=== PATIENT | male | born 1955 | race Caucasian/White ===

== ENCOUNTER → 2017-11-25 | Outpatient (CLI) | payer OTHER ==
--- NOTE | 2017-11-25 10:30 | CT ---
EXAMINATION TYPE: CT chest w con DATE OF EXAM: 11/25/2017 COMPARISON: 10/19/2017 HISTORY: Multiple lung nodules, recent pneumonia [address] DLP: 638.3 mGycm, Automated exposure control for dose reduction was used. CONTRAST: Performed injected with 100 mL of Omnipaque 300. TECHNIQUE: Axial images were obtained at 5 mm thick sections. Reconstructed images are reviewed on [employer] computer in the coronal plane. FINDINGS: Portion of the thyroid visualized is normal. Subglottic airway appears normal. There are multiple bilateral nodules within the mid periphery of the lung torres bilaterally in both upper and lower lung torres. Larger nodules measure up to 0.7 cm and include posterior to the aortic arch, series 4 image 16, right upper lobe, series 4 image 21 along the pleural margin on the posterio r lateral right lung base. Series 4 image 45. There are additional smaller nodules documented on the images. Nodules are present on the 10/19/2017 comparison. Previous left pleural effusion is resolved. No enlarged mediastinal or hilar adenopathy is evident. There are several small subcentimeter lymph nodes present within the mediastinum and hilar regions. The ascending aorta diameter at the level of the main pulmonary artery is 4.1 cm. The main pulmonary artery diameter at the bifurcation is 3.[address] sections are obtained through the upper abdomen. Some mild fatty infiltration liver is pre sent. IMPRESSIONS: 1. Multiple bilateral pulmonary nodules present on the comparison of October 2017. Findings are stab le. Monitoring is recommended. Neoplasm is not excluded.
== END | disposition home or self-care (01) ==
LOC: RADCTMAIN 09:26
PROVIDERS: ATTEND Internal Medicine Critical Care Medicine
DX: R91.8 Other nonspecific abnormal finding of lung field (principal)
CPT/HCPCS: 71260; Q9967

== ENCOUNTER 2017-11-27 10:34 | Day surgery (SDC) | payer OTHER ==
[2017-11-25 14:01] VITALS: BMI 37.3
[2017-11-27 12:21] VITALS: RESP 20; TEMP 98.2
[2017-11-27 12:28] LABS: Glucose,Whole Blood 118 mg/dL (75-99)
[2017-11-27] MEDS: LACTATED RINGERS 1,000 ML IV SCH ×2 (12:30→12:31)
[2017-11-27] MEDS ORDERED: PROPOFOL 10 MG/ML 20 ML VIAL IV ONE (12:32)
--- NOTE | 2017-11-27 12:52 | P.PCN ---
Date of Procedure: 11/27/17 Procedure(s) Performed: BRIEF HISTORY: Patient is a 62-year-old pleasant white male, scheduled for an elective colonoscopy as a part of surveillance of prior history of colon cancer diagnosed in October 2014 for which she underwent sigmoid resection. PROCEDURE PERFORMED: Colonoscopy With biopsy. 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 IV sedation per Anesthesia. PROCEDURE: After informed consent was obtained, the patient, was brought into the endoscopy unit. IV sedation was administered by Anesthesia under continuous monitoring. Digital rectal examination was normal. Initially the Olympus CF- 160 flexible video colonoscope was then inserted in the rectum, gradually advanced into the cecum without any difficulty. Careful examination was performed as the scope was gradually being withdrawn. Ileocecal valve and the appendiceal orifice were visualized and appeared normal. Prep was excellent. Mucosa of the cecum, ascending colon, transverse colon,appeared normal. In the descending colon there was a 5 mL polyp that was removed by biopsy. The rest of the descending colon, and rectum appeared normal. There was a 5 mm polyp noted in the mid rectum there was also removed by biopsy. Surgical anastomosis was located at 20 cm from the anal was that appeared normal. Retroflexion was performed in the rectum and no lesions were seen. The patient tolerated the procedure well. IMPRESSION: 5 mm descending colon polyp status post removal by biopsy 5 mm rectal polyp status post removal by biopsy Scattered diverticulosis RECOMMENDATIONS: Findings of this examination were discussed with the patient as well as his family. he was advised to follow with the biopsy results. He can have a repeat surveillance colonoscopy in 3 years.
[2017-11-27 13:57] VITALS: BP 145/88; PULSE 93
--- NOTE | 2017-12-02 13:53 | CDI ---
Date: 12/02/17 CDS/[employer] Name: [place] Phone: If you have question, contact Chhaya Sandoval, [employer] at M-F 8:30 am to 6pm. Patient Name: Frankie Good Admit Date: 11/27/17 Discharge Date: 11/27/17 ATTENTION: The Clinical Documentation Specialists (CDI) and [facility] Coding Staff appreciate your assistance in clarifying documentation. Please respond to the clarification below the line at the bottom and electronically sign. The CDI & [facility] Coding staff will review the response and follow-up if needed. Please note: Queries are made part of the Legal Health Record. If you have any questions, please contact the author of this message via ITS or call the [employer]. Dr [place], Please provide clarification as to the method that the rectal and descending polyps were removed. Please clarify if it was hot or cold biopsy Thank you for your assistance. Polyps were removed by cold biopsy STEFFANY
== END 2017-11-27 14:27 | disposition home or self-care (01) ==
LOC: ORWHC2ENDO 10:34
PROVIDERS: ATTEND Internal Medicine Gastroenterology
DX: Z12.11 Encounter for screening for malignant neoplasm of colon (principal); D12.4 Benign neoplasm of descending colon; D12.8 Benign neoplasm of rectum; Z90.49 Acquired absence of other specified parts of digestive tract; Z85.038 Personal history of other malignant neoplasm of large intestine; K57.30 Diverticulosis of large intestine without perforation or abscess without bleeding; I10 Essential (primary) hypertension; Z79.899 Other long term (current) drug therapy; Z88.2 Allergy status to sulfonamides; Z88.1 Allergy status to other antibiotic agents; Z91.041 Radiographic dye allergy status
CPT/HCPCS: 88305; 45380; J2704

== ENCOUNTER → 2018-06-11 | Outpatient (CLI) | payer OTHER ==
--- NOTE | 2018-06-11 12:32 | US ---
EXAMINATION TYPE: US kidneys/renal and bladder DATE OF EXAM: 06/11/2018 COMPARISON: NONE CLINICAL HISTORY: N28.9 Right kidney pain. History of colon CA EXAM MEASUREMENTS: Right Kidney: 9.8 x 5.8 x 6.0 cm Left Kidney: 11.4 x 6.5 x 6.0 cm Right Kidney: Measuring smaller than the left . No hydronephrosis. No cystic or solid mass visualized Left Kidney: No hydronephrosis. Echogenic foci visualized measuring 0.4 cm Bladder: wnl Bilateral Jets seen: Yes IMPRESSION: 1. Slight diminished size of right kidney compared to left. 2. Nonobstructing superior pole left renal stone
== END | disposition home or self-care (01) ==
LOC: RADUSWWP 07:36
PROVIDERS: ATTEND Family Medicine
DX: N20.0 Calculus of kidney (principal)
CPT/HCPCS: 76770

== ENCOUNTER → 2018-07-05 | Outpatient (CLI) | payer OTHER ==
[2018-07-05 11:34] LABS: Blood Urea Nitrogen 13 mg/dL (9-20)
--- NOTE | 2018-07-05 14:35 | CT ---
EXAMINATION TYPE: CT chest w con DATE OF EXAM: 07/05/2018 COMPARISON: 11/25/2017 and 06/16/2017 HISTORY: 63-year-old male Abnormal prior scan, spots in lungs TECHNIQUE: Contiguous axial scanning of the chest after the administration of 100 mL of Isovue 300. Coronal/sagittal reconstructions performed. CT DLP: 828.3mGycm. Automatic exposure control utilized for a dose reduction. FINDINGS: Heart is normal size without pericardial effusion. Ascending aorta ectatic and 3.7 cm. Upper descending thoracic aorta is ectatic at 3.2 cm. There is luisa vine configuration to the aortic arch. Very direct takeoff of the left vertebral artery also from the aortic arch. Calcified left hilar lymph nodes are noted. No thoracic lymphadenopathy by CT size criteria. Numerous bilateral pulmonary nodules are redemonstrated, measuring up to 8 mm and 7 mm in the right l ower lobe. Nodules are largely unchanged as compared to 06/16/2017. No consolidation or pleural effusio n. Low attenuation of the hepatic parenchyma, suspected fatty infiltration. At the tiny 5 mm dependent g allstone noted. Bones: No osseous destructive process. IMPRESSION: Numerous bilateral pulmonary nodules measuring up to 8 mm are largely unchanged from 06/16/2017. Given calcified lymph nodes in the left hilum, these may relate to prior granulomatous disease. One-year st ability suggests a benign etiology. Additional one-year follow-up recommended.
== END | disposition home or self-care (01) ==
LOC: RADCTMAIN 10:55
PROVIDERS: ATTEND Internal Medicine Critical Care Medicine
DX: R91.8 Other nonspecific abnormal finding of lung field (principal)
CPT/HCPCS: 82565; 84520; 71260; 36415; Q9967

== ENCOUNTER → 2019-05-31 | Outpatient (CLI) | payer OTHER ==
--- NOTE | 2019-05-31 11:31 | US ---
EXAMINATION TYPE: US soft tissue neck DATE OF EXAM: 05/31/2019 COMPARISON: NONE CLINICAL HISTORY: 64-year-old male R59.0 Localized enlarged lymph nodes. Patient states the right marycruz e of his neck felt swollen. Is no longer feeling that way at time of exam TECHNIQUE: Multiple sonographic images along the right side of the neck at the site of patient direct ed swelling. FINDINGS: No significant abnormality visualized on current exam. Normal appearing probable lymph node visualize d measuring 0.9 x 0.4 x 0.5 cm IMPRESSION: Targeted scanning along the right side of the neck at the site of patient directed swelling. Patient reports that swelling has improved clinically. A benign-appearing, nonenlarged 5 mm short axis lymph node is seen in this location.
--- NOTE | 2019-05-31 20:20 | EST ---
EXERCISE STRESS AGE: 64 SEX: Male WT: 258 PROTOCOL: Kaleb STAGE: 3 DURATION OF EXERCISE: 6:30 HEART RATE REST: 77 BLOOD PRESSURE REST: 132/68 MAXIMUM HEART RATE ACHIEVED: 136 MAXIMUM BLOOD PRESSURE: 169/65 85% MPHR: 134 100% MPHR: 158 METS: 7.9 INDICATIONS: Syncope. CLINICAL INFORMATION: Baseline EKG revealed normal sinus rhythm with nonspecific T-wave flattening. The patient walked on standard Kaleb protocol for 6-1/2 minutes, achieved a maximal heart rate of 136 beats per minute, which is 86% of predicted maximal. He developed fatigue and shortness of breath but did not have any angina or arrhythmia. EKG revealed inferolateral ST-segment depression of more than 1 mm suggestive of ischemia without subjective symptoms of angina. There was no arrhythmia. Possibility of this being a false-positive should be considered. The patient does have underlying hypertension. By EKG criteria, this is considered as an inconclusive stress test with limited exercise capacity. Resting EKG was abnormal to begin with and there was inferolateral ST-segment depression without anginal symptoms. If ischemia is strongly suspected, he should have a stress Cardiolite scan or a stress echocardiogram. MMODL / IJN: [id number] /
== END | disposition home or self-care (01) ==
LOC: RADUSWWP 07:15
PROVIDERS: ATTEND Family Medicine
DX: R59.0 Localized enlarged lymph nodes (principal); I10 Essential (primary) hypertension; E11.9 Type 2 diabetes mellitus without complications; R55 Syncope and collapse
CPT/HCPCS: 76536; 93017

== ENCOUNTER → 2019-08-08 | Outpatient (CLI) | payer OTHER ==
[2019-08-08 09:30] LABS: African American GFR (CKD) >90 (>60 ml/min/1.73 sqM); Blood Urea Nitrogen 15 mg/dL (9-20)
--- NOTE | 2019-08-08 13:22 | CT ---
EXAMINATION TYPE: CT chest w con DATE OF EXAM: 08/08/2019 COMPARISON: 07/05/2018 and 06/16/2017 HISTORY: 64-year-old male lung nodule TECHNIQUE: Contiguous axial scanning of the chest after the administration of 100 mL of Isovue 300. Coronal/sagittal reconstructions performed. CT DLP: 797mGycm. Automatic exposure control utilized for a dose reduction. FINDINGS: Heart upper limits of normal in size without pericardial effusion. Scattered mild coronary vessel benito cifications are present. Ectatic ascending aorta 3.8 cm an ectatic upper descending thoracic aorta 3.2 cm. Mild apical scarrin g plaque in the arch. Bovine configuration and additional variant direct takeoff of the left vertebra l artery directly from the aortic arch. Calcified left hilar lymph nodes. No thoracic lymphadenopathy by CT size criteria. Some strandy dependent atelectasis in the lungs. Numerous scattered bilateral pulmonary nodules measu ring up to 8 mm are largely unchanged from 06/16/2017. A few pulmonary nodules measuring up to 5 mm in the left upper lobe were not clearly seen in 2017 but were seen back on 07/05/2018 suggesting a benign etiology. No new pulmonary nodules from that time. A n additional annual follow-up can be performed. No consolidation or pleural effusion. Visualized upper abdomen suggests hepatic steatosis. Small 4 mm gallstone. Bones: Mild endplate spondylosis mid to lower thoracic spine. IMPRESSION: 1. Numerous bilateral pulmonary nodules measuring up to 8 mm, largely unchanged from 2017. A few with in the left upper lobe were not clearly seen back in 2017 but are unchanged from 07/05/2018 suggesting a benign etiology. No new pulmonary nodules seen. Consider continued annual surveillance. 2. Hepatic steatosis and 4 mm gallstone.
== END | disposition home or self-care (01) ==
LOC: RADCTMAIN 08:40
PROVIDERS: ATTEND Internal Medicine
DX: R91.8 Other nonspecific abnormal finding of lung field (principal); K76.0 Fatty (change of) liver, not elsewhere classified; K80.20 Calculus of gallbladder without cholecystitis without obstruction; Z88.1 Allergy status to other antibiotic agents; Z88.2 Allergy status to sulfonamides; Z91.041 Radiographic dye allergy status
CPT/HCPCS: 82565; 84520; 71260; 36415; Q9967

== ENCOUNTER → 2019-09-16 | Outpatient (CLI) | payer OTHER ==
[2019-09-16 10:09] LABS: African American GFR (CKD) >90 (>60 ml/min/1.73 sqM); Blood Urea Nitrogen 12 mg/dL (9-20)
--- NOTE | 2019-09-16 11:36 | CT ---
EXAMINATION TYPE: CT ChestAbdPelvis w con DATE OF EXAM: 09/16/2019 COMPARISON: 08/08/2019, 07/05/2018, 06/16/2017. HISTORY: 64-year-old male Rectal CA follow up TECHNIQUE: Contiguous axial scanning of the chest, abdomen, and pelvis performed with IV Contrast, pa tient injected with 100 mL of Isovue 300. Delayed images through the kidneys were obtained. Coronal/s agittal reconstructions performed. CT DLP: 2103 mGycm Automated exposure control for dose reduction was used. FINDINGS: CHEST: Heart normal size without pericardial effusion. Scattered coronary vessel calcifications are present. Ectatic upper descending thoracic aorta at 3.2 cm. Mild atherosclerotic plaque and calcifications at the arch with bovine configuration and additional variant direct takeoff of the left vertebral artery directly from the aortic arch. Large caliber to the main right and left pulmonary arteries are 2.9 and 2.8 cm, respectively, suggest ing underlying pulmonary hypertension. Scattered nonenlarged mediastinal lymph nodes. No thoracic lymphadenopathy by CT size criteria. Mild bilateral gynecomastia. Numerous bilateral pulmonary nodules are redemonstrated, mostly measuring 5 mm or smaller, largest oakley bpleural peripheral right midlung measuring 6 mm and peripheral right base measuring 8 mm, stable marisol k to 06/28/2017 compatible with benign etiologies. Approximately 4 small pulmonary nodules in the left apex are stable back to 07/05/2018. No consolidation or pleural effusion. No new suspicious pulmonary nodule or mass is identified. ABDOMEN: Liver enlarged at 20.3 cm, similar to prior with low-attenuation compatible with fatty infiltration. Portal venous system is patent. No biliary ductal dilatation. 5 mm gallstone. No abnormal gallbladder distention. Adrenal glands, kidneys, spleen, pancreas appear within normal limits. Prominent 1.3 cm portacaval lymph node unchanged. Numerous scattered nonenlarged mesenteric lymph nodes are redemonstrated throughout measuring up to 6 mm in the mid and left abdomen at 7 mm on the right side of the abdomen. No progressive abdominal lymphadenopathy seen as compared to 06/16/2017. No dilated small bowel, free fluid, or free air. Normal appendix. Left-sided colonic diverticulosis. Oral contrast progressed to the distal sigmoid. S taple line at the rectosigmoid junction from prior resection and reanastomosis. No pericolic inflamma tory change. Tiny fatty umbilical hernia. PELVIS: Mild circumferential bladder wall thickening. Central prostatic calcifications. Pelvic phleboliths. P rostate gland normal size at 3.8 cm wide. Prominent external iliac chain lymph nodes measure up to 8 mm on either side, unchanged no abnormal fluid collection in the pelvis. Partially visualized bilater al hydroceles. BONES: Mild degenerative changes at the hips. Stable sclerotic focus left iliac bone suggesting a benign bon [place]. There is subarticular sclerosis at the SI joints on the iliac sides with subtle subarticula r erosions on the right. Facet arthropathy lower lumbar spine. No osseous destructive process. There is grade 1 anterolisthesis at L4-L5. IMPRESSION: 1. NUMEROUS BILATERAL PULMONARY NODULES MEASURING UP TO 7 MM ALL LARGELY STABLE BACK TO 06/16/2017 COMP ATIBLE WITH A BENIGN ETIOLOGY. A FEW 5 MM AND SMALLER PULMONARY NODULES AT THE LEFT UPPER LUNG ARE ST ABLE BACK TO AT LEAST 07/05/2018 ALSO SUGGESTING A BENIGN PROCESS. 2. STABLE SCATTERED NONENLARGED AND BORDERLINE SIZED MESENTERIC LYMPH NODES MEASURING UP TO 7 MM AND BILATERAL EXTERNAL ILIAC CHAIN LYMPH NODES MEASURING UP TO 8 MM. LIKELY CHRONIC REACTIVE/POST INFLAMM ATORY. 3. POSTSURGICAL CHANGES WITH RESECTION AND RE-ANASTOMOSIS AT THE RECTOSIGMOID JUNCTION. NO SPECIFIC F INDINGS OF NEOPLASTIC RECURRENCE/METASTATIC DISEASE. 4. INCIDENTAL: HEPATOMEGALY (20.3 CM) WITH HEPATIC STEATOSIS, CHOLELITHIASIS, AND MILD LEFT-SIDED COL ONIC DIVERTICULOSIS.
== END | disposition home or self-care (01) ==
LOC: RADCTMAIN 09:33
PROVIDERS: ATTEND Internal Medicine Hematology & Oncology
DX: K57.30 Diverticulosis of large intestine without perforation or abscess without bleeding (principal); R91.8 Other nonspecific abnormal finding of lung field; K76.0 Fatty (change of) liver, not elsewhere classified; C19 Malignant neoplasm of rectosigmoid junction; K80.20 Calculus of gallbladder without cholecystitis without obstruction; Z91.048 Other nonmedicinal substance allergy status
CPT/HCPCS: 82565; 84520; 71260; 74177; 36415; Q9967

== ENCOUNTER 2020-06-06 07:41 | Day surgery (SDC) | payer OTHER ==
[2020-06-04 09:56] VITALS: BMI 37.3
[~2020-06-06 07:41] MED LIST: LACTATED RINGERS 1,000 ML IV SCH
[2020-06-06 08:01] VITALS: RESP 16; TEMP 98.2
[2020-06-06 08:11] LABS: Glucose,Whole Blood 214 mg/dL (75-99)
[2020-06-06] MEDS ORDERED: LIDOCAINE 1% (10MG/ML) FOR IV START INTRADERMA ONE (08:11)
[2020-06-06] MEDS ORDERED: PROPOFOL 10 MG/ML 20 ML VIAL IV ONE (08:54)
--- NOTE | 2020-06-06 09:16 | P.PCN ---
Date of Procedure: 06/06/20 Procedure(s) Performed: BRIEF HISTORY: Patient is a 62-year-old pleasant white male scheduled for an elective colonoscopy as a part of surveillance of prior history of colon cancer. He was diagnosed with sigmoid cancer in 2013 and status post sigmoid colon resection. PROCEDURE PERFORMED: Colonoscopy. PREOPERATIVE DIAGNOSIS: Surveillance of colon cancer. IV sedation per Anesthesia. PROCEDURE: After informed consent was obtained, the patient, was brought into the endoscopy unit. IV sedation was administered by Anesthesia under continuous monitoring. Digital rectal examination was normal. Initially the Olympus CF-160 flexible video colonoscope was then inserted in the rectum, gradually advanced into the cecum without any difficulty. Careful examination was performed as the scope was gradually being withdrawn. Ileocecal valve and the appendiceal orifice were visualized and appeared normal. Prep was fair.. Mucosa of the cecum, ascending colon, transverse colon, descending colon, sigmoid colon, and rectum appeared normal. Scattered left-sided diverticulosis. Retroflexion was performed in the rectum and no lesions were seen. The patient tolerated the procedure well. IMPRESSION: Normal-appearing colon from rectum to cecum with no evidence of colorectal neoplasia Scattered left-sided diverticulosis. RECOMMENDATIONS: Findings of this examination were discussed with the patient as well as his family. He was advised to have a repeat surveillance colonoscopy in 3 years from now because of prior history of colon cancer.
[2020-06-06 09:26] LABS: Glucose,Whole Blood 200 mg/dL (75-99)
[2020-06-06 09:38] VITALS: BP 135/82; PULSE 86
== END 2020-06-06 09:55 | disposition home or self-care (01) ==
LOC: ORWHC2ENDO 07:41
PROVIDERS: ATTEND Internal Medicine Gastroenterology
DX: Z12.11 Encounter for screening for malignant neoplasm of colon (principal); K57.30 Diverticulosis of large intestine without perforation or abscess without bleeding; E11.9 Type 2 diabetes mellitus without complications; I10 Essential (primary) hypertension; E78.5 Hyperlipidemia, unspecified; R55 Syncope and collapse; R94.39 Abnormal result of other cardiovascular function study; E66.01 Morbid (severe) obesity due to excess calories; Z68.37 Body mass index [BMI] 37.0-37.9, adult; Z85.038 Personal history of other malignant neoplasm of large intestine; Z90.49 Acquired absence of other specified parts of digestive tract; Z91.041 Radiographic dye allergy status; Z88.1 Allergy status to other antibiotic agents; Z88.2 Allergy status to sulfonamides; Z91.048 Other nonmedicinal substance allergy status; Z79.84 Long term (current) use of oral hypoglycemic drugs; Z79.899 Other long term (current) drug therapy; Z87.891 Personal history of nicotine dependence; Z98.890 Other specified postprocedural states
CPT/HCPCS: 45378; J2704

== ENCOUNTER → 2020-09-25 | Outpatient (CLI) | payer OTHER ==
[2020-09-25 09:49] LABS: African American GFR (CKD) >90 (>60 ml/min/1.73 sqM); Blood Urea Nitrogen 14 mg/dL (9-20); Non-African American GFR(CKD) >90 (>60 ml/min/1.73 sqM)
--- NOTE | 2020-09-25 13:56 | CT ---
EXAMINATION TYPE: CT ChestAbdPelvis w con DATE OF EXAM: 09/25/2020 COMPARISON: CT 09/16/2019 HISTORY: Rectal CA CT DLP: 2718 mGycm Automated exposure control for dose reduction was used. CONTRAST: CT scan of the chest, abdomen and pelvis is performed with Oral Contrast and with IV Contrast, patien t injected with 100 mL of Isovue 300. FINDINGS: LUNGS: The lungs are grossly clear, there is no concerning parenchymal mass or nodule identified. Sc attered soft tissue nodules are again noted bilaterally some of which are centrally calcified, findin gs are most likely goodwill representative of old granulomatous disease. There is no pleural effusion or pneum othorax seen. The tracheobronchial tree is patent. MEDIASTINUM: There are no greater than 1 cm hilar or mediastinal lymph nodes. No pericardial effusi on is seen. Calcified left hilar nodes are again seen. AORTA: No significant abnormality is seen. 4 super aortic branch vessels are noted. OTHER: No additional significant abnormality is seen. LIVER/GB: Small focus of increased attenuation present within the gallbladder neck is again seen, mac er shows low attenuation likely due to hepatic steatosis and liver is enlarged.. PANCREAS: No significant abnormality is seen. SPLEEN: No significant abnormality is seen. ADRENALS: No significant abnormality is seen. KIDNEYS: No significant abnormality is seen. REPRODUCTIVE ORGANS: Calcifications associated with the prostate. BOWEL: No significant table change is seen. FREE AIR: No Free Air visible. ASCITES: None seen. RETROPERITONEAL ADENOPATHY: No retroperitoneal adenopathy is seen. LYMPH NODES: No greater than 1 cm abdominal or pelvic lymph nodes are appreciated. URINARY BLADDER: No significant abnormality is seen. PELVIC ADENOPATHY: None visualized. OSSEOUS STRUCTURES: No significant abnormality is seen. IMPRESSION: No evident recurrence.
== END | disposition home or self-care (01) ==
LOC: RADCTMAIN 08:49
PROVIDERS: ATTEND Internal Medicine Hematology & Oncology
DX: C19 Malignant neoplasm of rectosigmoid junction (principal); Z91.048 Other nonmedicinal substance allergy status
CPT/HCPCS: 82565; 84520; 71260; 74177; 36415; Q9967

== ENCOUNTER → 2021-02-27 | Outpatient (CLI) | payer OTHER ==
--- NOTE | 2021-02-27 14:45 | US ---
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 SIDE PERFORMED: Bilateral TECHNIQUE: The lower extremity deep venous system is examined utilizing real time linear array sonog vani with graded compression, doppler sonography and color-flow sonography. VESSELS IMAGED: Common Femoral Vein Deep Femoral Vein Greater Saphenous Vein * Femoral Vein Popliteal Vein Small Saphenous Vein * Proximal Calf Veins (* superficial vessels) Right Leg: Negative for DVT Left Leg: Negative for DVT IMPRESSION: No evidence for DVT at this time.
--- NOTE | 2021-03-06 09:40 | P.ARTDOP ---
Arterial Doppler LOWER EXTREMITY ARTERIAL DOPPLER: DATE OF SERVICE: 02/27/2021 Reason for study: Left calf ulcer. Doppler waveforms: Multiphasic bilaterally with excellent digital waveforms. Pulse volume recording: []. Pressure gradients: None. Ankle-brachial indices: Greater than 1 bilaterally. Toe brachial indices: 0.74 on the right, 0.74 on the left Impression: Normal study.
== END | disposition home or self-care (01) ==
LOC: RADUSWWP 13:27
PROVIDERS: ATTEND Family Medicine
DX: I87.313 Chronic venous hypertension (idiopathic) with ulcer of bilateral lower extremity (principal)
CPT/HCPCS: 93922; 93970

== ENCOUNTER 2023-05-22 09:17 | Day surgery (SDC) | payer MEDICARE, OTHER ==
[2023-05-20 12:14] VITALS: BMI 34.4
[2023-05-22 10:01] VITALS: TEMP 97.6
[2023-05-22] MEDS ORDERED: LACTATED RINGERS 1,000 ML IV ONE (10:11)
[2023-05-22 10:13] LABS: Glucose,Whole Blood 229 mg/dL (70-110)
[2023-05-22] MEDS ORDERED: METOCLOPRAMIDE 5 MG/ML 2 ML VIAL ONE (10:26)
[2023-05-22] MEDS ORDERED: METOCLOPRAMIDE 5 MG/ML 2 ML VIAL IVP ONE (10:27)
[2023-05-22 10:36] LABS: African American GFR (CKD) >90 (>60 ml/min/1.73 sqM); Blood Urea Nitrogen 11 mg/dL (9-20); Non-African American GFR(CKD) >90 (>60 ml/min/1.73 sqM)
[2023-05-22] MEDS ORDERED: PROPOFOL 10 MG/ML 20 ML VIAL IV ONE (10:43)
--- NOTE | 2023-05-22 11:02 | P.PCN ---
Date of Procedure: 05/22/23 Procedure(s) Performed: BRIEF HISTORY: Patient is a 67-year-old pleasant white female scheduled for an elective colonoscopy as a part of evaluation of history of colon cancer diagnosed 8 years ago. PROCEDURE PERFORMED: Colonoscopy with biopsy. PREOPERATIVE DIAGNOSIS: History of colon cancer. IV sedation per Anesthesia. PROCEDURE: After informed consent was obtained, the patient, was brought into the endoscopy unit. IV sedation was administered by Anesthesia under continuous monitoring. Digital rectal examination was normal. Initially the Olympus CF-160 flexible video colonoscope was then inserted in the rectum, gradually advanced into the cecum without any difficulty. Careful examination was performed as the scope was gradually being withdrawn. Ileocecal valve and the appendiceal orifice were visualized and appeared normal. Prep was excellent. Mucosa of the cecum, ascending colon, appeared normal. The transverse colon there was a 3 mm sessile polyp that was removed by cold biopsy. Rest of the transverse colon, descending colon, sigmoid colon, and rectum appeared normal. Scattered sigmoid diverticulosis. Retroflexion was performed in the rectum and no lesions were seen. The patient tolerated the procedure well. IMPRESSION: 3 mm transverse colon polyp status post cold biopsy Scattered sigmoidal reticulosis. RECOMMENDATIONS: Findings of this examination were discussed with the patient as well as his family. He was advised to follow with the biopsy results. Recommend repeat colonoscopy in 3 years.
[2023-05-22 11:28] VITALS: BP 125/72; PULSE 78; RESP 15
[2023-05-22 11:28] LABS: Glucose,Whole Blood 216 mg/dL (70-110)
== END 2023-05-22 11:38 | disposition home or self-care (01) ==
LOC: ORWHC2ENDO 09:17
PROVIDERS: ATTEND Internal Medicine Gastroenterology
DX: Z12.11 Encounter for screening for malignant neoplasm of colon (principal); D12.4 Benign neoplasm of descending colon; Z85.038 Personal history of other malignant neoplasm of large intestine; K57.30 Diverticulosis of large intestine without perforation or abscess without bleeding; I10 Essential (primary) hypertension; E78.5 Hyperlipidemia, unspecified; Z85.828 Personal history of other malignant neoplasm of skin; Z88.2 Allergy status to sulfonamides; Z88.1 Allergy status to other antibiotic agents; Z91.048 Other nonmedicinal substance allergy status; Z90.49 Acquired absence of other specified parts of digestive tract; Z79.899 Other long term (current) drug therapy
CPT/HCPCS: 88305; 82565; 84520; 45380; J2765; J2704

== ENCOUNTER → 2024-09-26 | Outpatient (CLI) | payer MEDICARE ==
--- NOTE | 2024-09-26 08:12 | MM ---
Reason for Exam: Clinical finding. Baseline mammogram. Indicated Problems: Pain of the left side for 2 Month(s). Prior Study Comparison: Patient's first Mammogram. Tissue Density: There are scattered areas of fibroglandular density. Findings: Analyzed By CAD. Retroareolar flame-shaped density left greater than right felt to reflect gynecomastia. Ultrasound is recommended. Overall Assessment: Incomplete: need additional imaging evaluation, BI-RAD 0 Management: Diagnostic Breast Ultrasound of both breasts. . Results were given to the patient verbally at the time of exam. Patient should continue monthly self-breast exams. A clinical breast exam by your physician is recommended on an annual basis. This exam should not preclude additional follow-up of suspicious palpable abnormalities. Note on Odilia scores and lifetime risk: 1. A Odilia score greater than 3% is considered moderate risk. If this is the case, consider specialist referral to assess eligibility for a risk reducing agent. 2. If overall lifetime risk for the development of breast cancer is 20% or higher, the patient may qualify for future screening with alternating mammogram and breast MRI. [facility], , 09/26/2024 8:08 AM. Electronically signed and approved by: Mark Anthony Sandra M.D. Radiologis
--- NOTE | 2024-09-26 08:24 | USB ---
Reason for Exam: Clinical finding. Technique: Method: Targeted. Findings: The axilla of the left breast and the retroareolar of the left breast were scanned. Retroareolar hypodensity seen left greater than right is gynecomastia. No suspicious masses seen. Overall Assessment: Benign, BI-RAD 2 Electronically signed and approved by: Mark Anthony Sandra M.D. Radiologis
== END | disposition home or self-care (01) ==
LOC: RADMAMWWP 07:24
PROVIDERS: ATTEND Family Medicine
DX: N64.4 Mastodynia (principal); R92.323 Mammographic fibroglandular density, bilateral breasts
CPT/HCPCS: 77062; 77066

== ENCOUNTER → 2024-10-18 | Outpatient (CLI) | payer MEDICARE ==
--- NOTE | 2024-10-19 23:17 | US ---
EXAMINATION TYPE: US scrotum with doppler. DATE OF EXAM: 10/18/2024 COMPARISON: NONE CLINICAL INDICATION: Male, 69 years old with history of C19 MALIGNANT NEOPLASM OF RECTOSIGMOID JUNCTI ON; TECHNIQUE: Grayscale, color Doppler and spectral Doppler imaging of the scrotum. FINDINGS: EXAM MEASUREMENTS: TESTICLES: Right Testicle: 5.5 x 2.9 x 3.8 cm Left Testicle: 4.6 x 2.9 x 3.8 cm EPIDIDYMIS HEAD: Right Epididymis: 1.6 cm, 0.4cm cyst Left Epididymis: 1.5 cm Doppler performed to assess for testicular vascularity; good bilateral color flow and spectral wavefo fede are seen. There is no evidence of testicular torsion. Presence of hydroceles: right 4.9cm, left 5.2cm Presence of varicoceles: no IMPRESSION: 1. Right epididymal cyst. 2. Bilateral hydroceles [facility], , 10/19/2024 11:14 PM
== END | disposition home or self-care (01) ==
LOC: RADUSWWP 08:03
PROVIDERS: ATTEND Internal Medicine Hematology & Oncology
DX: I10 Essential (primary) hypertension (principal); C19 Malignant neoplasm of rectosigmoid junction; Z71.3 Dietary counseling and surveillance; R91.1 Solitary pulmonary nodule; N64.4 Mastodynia; N43.3 Hydrocele, unspecified; N50.3 Cyst of epididymis
CPT/HCPCS: 76870; 93975